=== PATIENT | female | born 1980 | race Caucasian/White ===

== ENCOUNTER 2017-10-05 12:58 | Emergency (ER) | payer BC ==
[2017-10-05 13:27] VITALS: BP 116/74
--- NOTE | 2017-10-05 14:20 | UC ---
Complaint Female HPI - HPI Summary HPI Summary: 36 YO HERE WITH 2 DAYS OF LOWER ABDOMINAL BURNING/CRAMPING AND URINARY FREQUENCY. ALSO HAS LIGHT SPOTTING THAT STARTED THIS MORNING. PT IS CURRENTLY 14.5 WEEKS AND HAS A KNOWN COMPLETE PLACENTA PREVIA. NOTICED SPOTTING TODAY AFTER SHE GOT OUT OF THE SHOWER. WENT TO [facility] WHERE HER WORKS ( ) AND HAD A BEDSIDE US WHICH PT REPORTS SHOWED GOOD MVMT AND HEARTBEAT. REPORTS SHE HAS HAD SEVERAL EPISODES OF ASYMPTOMATIC BACTERIURIA IN AND SO IS HERE FOR URINE TEST. PT FOLLOWED BY DR. FAM IN [place] (OB). NO FEVER, BACK PAIN, VAGINAL FLUID LOSS. - History Of Current Complaint Chief Complaint: UCGU Stated Complaint: BURNING URINATION Time Seen by Provider: 10/05/17 13:14 Hx Obtained From: Patient Onset/Duration: Sudden Onset, Lasting Days Severity Initially: Mild Severity Currently: Mild Pain Intensity: 2 Pain Scale Used: 0-10 Numeric Character: Burning, Cramping Aggravating Factor(s): Urination Alleviating Factor(s): Nothing Associated Signs And Symptoms: Positive: Vaginal Bleeding/Discharge. Negative: Fever, Back Pain, Nausea Related Hx: - 6, Para - 2 - Allergies/Home Medications Allergies/Adverse Reactions: Allergies Allergy/AdvReac Type Severity Reaction Status Date / Time No Known Allergies Allergy Verified 10/05/17 13:17 Home Medications: Home Medications Docusate CAP* [Colace Cap*] 1 cap PO BID 10/05/17 [History Confirmed 10/05/17] Levothyroxine TAB* [Synthroid 25 MCG TAB*] 1 tab PO DAILY 10/05/17 [History Confirmed 10/05/17] Vit W/ Docusate-Fe Fu [ 19] 1 tab PO DAILY 10/05/17 [History Confirmed 10/05/17] PMH/Surg Hx/FS Hx/Imm Hx Endocrine History: Thyroid Disease - GRAVES, Hypothyroidism - Surgical History Surgical History: None - Social History Alcohol Use: None Substance Use Type: None Smoking Status (MU): Never Smoked Tobacco Review of Systems Constitutional: Negative Respiratory: Negative Cardiovascular: Negative Gastrointestinal: Abdominal Pain Genitourinary: Frequency, Other - SPOTTING All Other Systems Reviewed And Are Negative: Yes Physical Exam Triage Information Reviewed: Yes Appearance: Well-Appearing, No Pain Distress, Well-Nourished Vital Signs: Initial Vital Signs Temp 97.9 F 10/05/17 13:19 Pulse 87 10/05/17 13:19 Resp 16 10/05/17 13:19 BP 116/74 10/05/17 13:19 Pulse Ox 99 10/05/17 13:19 Vital Signs Reviewed: Yes Eyes: Positive: Conjunctiva Clear ENT: Positive: Hearing grossly normal Neck: Positive: Supple Respiratory Exam: Normal Cardiovascular Exam: Normal Abdomen Description: Positive: Soft, Other: - MILDLY TENDER SUPRAPUBIC. Negative: CVA Tenderness (R), CVA Tenderness (L), Distended Musculoskeletal: Positive: No Edema Neurological: Positive: Alert Psychological: Positive: Age Appropriate Behavior Skin: Negative: rashes Diagnostics - Laboratory Diagnostic Studies Completed/Ordered: URINE DIP SP. GR. 1.010, 1+ BLOOD Complaint Female Dx - Course Course Of Treatment: PT TO CALL HER OB SHIMA TODAY TO ADVISE OF CURRENT SX. URINE DIP NEG FOR UTI. SENT FOR CX. - Differential Dx/Diagnosis Provider Diagnoses: URINARY FREQUENCY/SPOTTING IN Discharge - Discharge Plan Condition: Stable Disposition: HOME Referrals: No Primary Care Phys,NOPCP [Primary Care Provider] - Additional Instructions: URINE TEST TODAY WITH SMALL AMOUNT OF BLOOD BUT OTHERWISE UNREMARKABLE. SPECIMEN HAS BEEN SENT FOR CULTURE. CALL YOUR OB OFFICE TODAY TO INFORM THEM OF YOUR SYMPTOMS. IF YOUR BLEEDING OR CRAMPING GET WORSE GO DIRECTLY TO THE ER.
--- NOTE | 2017-10-06 15:02 | UC ---
Progress - Progress Note Progress Note: urine neg final culture growth no change Yonathan 10/07/2017
== END 2017-10-05 14:23 | disposition home or self-care (01) ==
LOC: UCEAST 12:58
DX: O99.89 Other specified diseases and conditions complicating pregnancy, childbirth and the puerperium (principal); O26.852 Spotting complicating pregnancy, second trimester; O99.282 Endocrine, nutritional and metabolic diseases complicating pregnancy, second trimester; R35.0 Frequency of micturition; E03.9 Hypothyroidism, unspecified; R10.9 Unspecified abdominal pain; Z3A.14 14 weeks gestation of pregnancy; Z79.899 Other long term (current) drug therapy
CPT/HCPCS: 81003; 87086; 99201; G0463